=== PATIENT | male | born 1950 | race Caucasian/White ===

== ENCOUNTER 2022-04-26 12:12 | Inpatient (IN) | payer OTHER, MEDICARE, SELFPAY ==
[2022-04-26] VITALS (11 sets, daily range): BP systolic 90–148; BP diastolic 56–71; PULSE 64–78; RESP 15–18; TEMP 36.4–38.3; O2SAT 93–96; BMI 20.2; BMI 24.4
[2022-04-26 12:31] LABS: Coronavirus 19, PCR Not Detected (NotDetected); Influenza A, PCR Not Detected (NotDetected); Influenza B, PCR Not Detected (NotDetected)
[2022-04-26 12:33] LABS: Microscopic, Urine URINE MICROSCOPIC (MICROSCOPIC)
[2022-04-26 12:35] LABS: Basophils # 0.1 K/mm3 (0-0.2); Basophils % 0.4 % (0.1-2.0); Chloride 109 mmol/L (98-107); Eosinophils # 0.1 K/mm3 (0.0-0.4); Eosinophils % 0.6 % (0.1-12.0); Hematocrit 34.2 % (42.0-52.0); Hemoglobin 11.3 g/dL (14.1-18.0); Lymphocytes # 1.1 K/mm3 (0.7-4.5); Lymphocytes % 6.2 % (10-50); Mean Corpuscular HGB Conc 33.1 g/dL (31.8-35.4); Mean Corpuscular Hemoglobin 30.1 pg (27.0-31.2); Mean Platelet Volume 8.4 fl (7.4-10.4); Monocytes # 1.2 K/mm3 (0.1-1.0); Monocytes % 6.9 % (1.7-9.3); Neutrophils # 15.3 K/mm3 (1.8-7.8); Neutrophils % 85.9 % (37.0-80.0); Platelet Count 394 K/mm3 (142-424); Red Blood Count 3.76 M/mm3 (4.60-6.20); Red Cell Distribution Width 13.9 % (11.5-17.5); White Blood Count 17.8 K/mm3 (4.8-10.8)
[2022-04-26 12:36] LABS: Potassium 3.6 mmoL/L (3.5-5.1); Sodium 143 mmol/L (136-145)
[2022-04-26 12:37] LABS: MANUAL DIFFERENTIAL MANUAL DIFFERENTIAL (MANUAL DIFF)
[2022-04-26 12:37] LABS: Appearance,Urine CLEAR (Clear); Bilirubin,Urine Negative (Negative); Blood, Urine 1+ (Negative); Color,Urine YELLOW (Yellow); Glucose,Urine (UA) Negative (Negative); Ketones,Urine Negative (Negative); Leukocyte Esterase,Urine Negative (Negative); Nitrate,Urine Negative (Negative); Protein,Urine Negative (Negative); Urobilinogen,Urine 0.2 EU/dl (0.2)
[2022-04-26 12:38] LABS: Alanine Aminotransferase 16 U/L (12-78); Aspartate Amino Transferase 29 U/L (17-59); Blood Urea Nitrogen 22 mg/dl (9-20); Creatinine Clearance Estimated 30 mL/min (50-200); Estimated Glomerular Filt Rate 31 ml/min (>60); GFR (African American) 38 ML/MIN (>60)
[2022-04-26 12:39] LABS: Albumin Level 3.8 g/dl (3.5-5.0); Albumin/Globulin Ratio 1.1 (1.1-1.8); Alkaline Phosphatase 90 U/L (38-126); Anion Gap 14.6 mEq/L (5-15); Bilirubin,Total 0.5 mg/dl (0.2-1.3); Calcium 9.1 mg/dl (8.4-10.2); Carbon Dioxide 23 mmol/L (22.0-30.0); Globulin 3.6 g/dL (1.3-3.2); Glucose 119 mg/dl (74-100); Total Protein,Serum 7.4 g/dl (6.3-8.2)
--- NOTE | 2022-04-26 12:47 | ECG_ITS ---
APPROVED REPORT Exam: Resting ECG HR:74 bpm ECG Measurements Heart Rate 74 AXES ID 153 P 47 QRSd 110 QRS 53 QT 400 T 44 QTc 427 Conclusion SINUS RHYTHM NONSPECIFIC T-WAVE ABNORMALITY BORDERLINE ECG UNCONFIRMED REPORT Electronically signed by : Naseem Lewis MD 04/26/2022 22:20:27
[2022-04-26 12:53] LABS: Bacteria,Urine Trace /lpf; RBC,Urine Occasional #/hpf (0-3); Squamous Epithelial Cell,Urine Occasional #/hpf (0-5); WBC,Urine Occasional #/hpf (0-3)
[2022-04-26 12:57] LABS: Lymphocytes % 9 % (10-50); Monocytes % 15 % (2-9); Neutrophils % 76 % (42-76); Total Cells Counted 100
[2022-04-26 12:58] LABS: Platelet Estimate Slight Increase; RBC Morphology Normal
[2022-04-26 13:00] LABS: Troponin I 0.01 ng/ml (0.00-0.034)
--- NOTE | 2022-04-26 13:30 | XR_ITS ---
PROCEDURE INFORMATION: Exam: XR Chest Exam date and time: 04/26/2022 1:49 PM Age: 71 years old Clinical indication: Fever TECHNIQUE: Imaging protocol: Radiologic exam of the chest. Views: 1 view. COMPARISON: No relevant prior studies available. FINDINGS: Lungs: There is an indistinct triangular shaped opacity just lateral to the right hilum that is nonspecific and may be secondary to pneumonia but needs follow-up for clarification. Remaining lung aerated and clear. Pleural spaces: Unremarkable. No pleural effusion. No pneumothorax. Heart/Mediastinum: Unremarkable. No cardiomegaly. Bones/joints: There is deformity of the right lateral chest wall secondary to old healed fractures. IMPRESSION: Nonspecific right perihilar opacity possibly secondary to pneumonia. However recommend continued follow-up for clarification.
--- NOTE | 2022-04-26 13:37 | PC.NURSE ---
senior service technician @ BS chest x-ray
--- NOTE | 2022-04-26 13:38 | PC.NURSE ---
XR AT BEDSIDE
[2022-04-26 13:39] LABS: Adenovirus,PCR Not Detected (NotDetected); Bordetella Pertussis Not Detected (NotDetected); Chlamydophila Pneumoniae, PCR Not Detected (NotDetected); Coronavirus 19, PCR Not Detected (NotDetected); Coronavirus 229E Not Detected (NotDetected); Coronavirus NL63 Not Detected (NotDetected); Coronavirus OC43 Not Detected (NotDetected); Coronovirus HKU1,PCR Not Detected (NotDetected); Human Metapneumovirus Not Detected (NotDetected); Influenza A, PCR Not Detected (NotDetected); Influenza AH1, 2009 Not Detected (NotDetected); Influenza AH1, PCR Not Detected (NotDetected); Influenza AH3,PCR Not Detected (NotDetected); Influenza B, PCR Not Detected (NotDetected); Mycoplasma Pneumoniae, PCR Not Detected (NotDetected); Parainfluenza 1, PCR Not Detected (NotDetected); Parainfluenza 2, PCR Not Detected (NotDetected); Parainfluenza 3, PCR Not Detected (NotDetected); Parainfluenza 4, PCR Not Detected (NotDetected); Respiratory Syncytial Virus Not Detected (NotDetected); Rhinovirus/Enterovirus Not Detected (NotDetected)
--- NOTE | 2022-04-26 13:43 | HMH.EDGENADL ---
Discharge Plan Disposition Patient Disposition: Admitted As Inpatient Condition: Serious Clinical Impressions Clinical Impression: Community acquired pneumonia, Sepsis, PEDRO LUIS (acute kidney injury) Discharge ED Provider: Jonathan Olmstead General Adult HPI General Chief complaint: Weakness Stated complaint: weakness Time Seen by Provider: 04/26/22 13:43 Mode of Arrival: EMS Limitations: No Limitations Description of Symptoms (Recalled from ER Triage Doc. by RN): PT BROUGHT FROM [facility] History of Present Illness HPI narrative: The patient is brought in by ambulance from [facility]. He is a poor historian. Staff report that he was generally weak and unable to walk today. Found to be febrile on arrival to the emergency department. Patient denies any specific complaint. Denies any pain. Admits to being a smoker and having a cough, but not too much lately . Denies vomiting or diarrhea or trouble breathing. Related Data Home Medications Medication Instructions Recorded Confirmed risperidone 0.5 mg tablet 0.5 mg PO QHS DELUSIONS 09/23/18 04/26/22 amlodipine 10 mg tablet 10 mg PO DAILY High blood pressure 04/26/22 04/26/22 diazepam 5 mg tablet (Valium) 5 mg PO TID Anxiety 04/26/22 04/26/22 donepezil 5 mg tablet (Aricept) 5 mg PO HS DEMENTIA 04/26/22 04/26/22 fluoxetine 20 mg capsule (Prozac) 20 mg PO DAILY Anxiety 04/26/22 04/26/22 metoprolol succinate 50 mg 50 mg PO DAILY Heart rhythm 04/26/22 04/26/22 tablet,extended release 24 hr oxybutynin chloride 5 mg tablet 5 mg PO BID BLADDER 04/26/22 04/26/22 Previous Rx's Medication Instructions Recorded acetaminophen 325 mg tablet 325 mg PO Q4H PRN fever or pain 07/13/18 (Tylenol) #60 tabs Allergies Allergy/AdvReac Type Severity Reaction Status Date / Time No Known Allergies Allergy Verified 07/13/18 16:08 [facility] Disclaimer: The information contained in this section may have been updated after the patient was seen, as this information can be updated by other users. Social History Smoking Status: Current every day smoker ROS Obtained: Yes Systems reviewed as appropriate & no additional complaints except as documented Constitutional Constitutional: Reports fever(s), Denies headache(s) and Reports weakness ENT Ears, Nose, Mouth, and Throat: Denies headache(s), Denies nasal discharge and Denies sore throat Cardiovascular Cardiovascular: Denies chest pain Respiratory Respiratory: Denies shortness of breath and Reports cough Gastrointestinal Gastrointestingal: Denies abdominal pain, constipation, diarrhea or vomiting Genitourinary Male Genitourinary: Denies difficulty urinating and Denies flank pain Musculoskeletal Musculoskeletal: Denies numbness Neurologic Neurologic: Denies headache(s), Denies numbness and Reports weakness Physical Exam General General appearance: alert and in no apparent distress Comment: Occasional coughing. Pulse ox 97% on room air. Head Head exam: atraumatic and normocephalic Eye Eye exam: Present normal appearance and EOMI ENT ENT exam: Present mucous membranes moist Neck Neck exam: Present normal inspection and trachea midline Chest Chest inspection: Present normal inspection and symmetric chest wall rise Respiratory Respiratory exam: Present normal lung sounds bilaterally; Absent respiratory distress Cardiovascular Cardiovascular exam: Present regular rate, normal rhythm and normal heart sounds Abdominal Exam Abdominal exam: Present soft and normal bowel sounds; Absent distention, tenderness, guarding, rebound or rigidity Extremities Exam Extremities exam: Present normal inspection Neurological Exam Neurological exam: Present alert; Absent oriented X3 (Oriented to person. He knows he is in the hospital, but states the one by [facility] . Does not know the date.) Psychiatric Psychiatric exam: Present flat affect Skin Skin exam: Present warm and dry Medical Decision Making Terrence Galvan
--- NOTE | 2022-04-26 13:46 | PC.NURSE ---
ISAURO STARK at
--- NOTE | 2022-04-26 13:46 | PC.NURSE ---
ED MD AT BEDSIDE
[2022-04-26 13:48] LABS: Lactic Acid 1.3 mmol/L (0.7-2.1)
--- NOTE | 2022-04-26 14:46 | PC.NURSE ---
DR. VILLAR SPEAKING WITH DR. PETERSON
--- NOTE | 2022-04-26 14:48 | EXP.HP ---
History of Present Illness *Admission Date: 04/26/22 *Reason for visit:: weakness, cough *History of present illness: Mr. Cramer is a 71-year-old male who is a new resident at [facility]. Was brought to the ER due to report of general weakness and difficulty walking. Febrile and having cough on arrival to the ER. Difficult to get history as the patient is a poor historian. He does report being a smoker, is not on any inhalers. Denies any vomiting, chest pain, diarrhea. No headache. On work-up found to have elevated creatinine of 2.2, BUN 22, chest x-ray concerning for right perihilar consolidation. Admitted to medicine for further treatment of pneumonia and possible PEDRO LUIS. On arrival to the floor, he has no oxygen requirement. Is pleasant but unable to give much history. Does state that he has had symptoms for over a week and thought he might have COVID. They got worse over the past 2 days. Does not know if he has a history of chronic kidney disease. Eating dinner on interview. Was in unkempt condition when he arrived to the floor, frankly soiled and needed a bath. [facility] Disclaimer: The information contained in this section may have been updated after the patient was seen, as this information can be updated by other users. Patient is a poor historian, difficult to obtain history. Medical History (Updated 04/26/22 @ 18:31 by Donnie Caban MD) Alcoholism COPD (chronic obstructive pulmonary disease) Social History Smoking Status: Current every day smoker alcohol intake: former current occupational status: disabled Travel in the last 8 weeks: None Review of Systems Review of Systems Review of systems (narrative): 14 point review of systems performed, pertinent positives and negatives as per HPI Constitutional Constitutional: Denies headache(s) and Reports weakness ENT Ears, Nose, Mouth, and Throat: Denies headache(s) *Musculoskeletal Musculoskeletal: Denies numbness *Neurologic Neurologic: Denies headache(s), Denies numbness and Reports weakness Meds Home Medications and Allergies Home Medications Medication Instructions Recorded Confirmed Type acetaminophen 325 mg tablet 325 mg PO Q4H PRN fever or pain 07/13/18 04/26/22 Rx (Tylenol) #60 tabs risperidone 0.5 mg tablet 0.5 mg PO QHS DELUSIONS 09/23/18 04/26/22 History amlodipine 10 mg tablet 10 mg PO DAILY High blood pressure 04/26/22 04/26/22 History diazepam 5 mg tablet (Valium) 5 mg PO TID Anxiety 04/26/22 04/26/22 History donepezil 5 mg tablet (Aricept) 5 mg PO HS DEMENTIA 04/26/22 04/26/22 History fluoxetine 20 mg capsule (Prozac) 20 mg PO DAILY Anxiety 04/26/22 04/26/22 History metoprolol succinate 50 mg 50 mg PO DAILY Heart rhythm 04/26/22 04/26/22 History tablet,extended release 24 hr oxybutynin chloride 5 mg tablet 5 mg PO BID BLADDER 04/26/22 04/26/22 History New Prescriptions to Start Prescriptions: Allergies Allergy/AdvReac Type Severity Reaction Status Date / Time No Known Allergies Allergy Verified 07/13/18 16:08 Exam Data for Last 24 hours Vital signs and Labs for Last 24 Hours: Temp Pulse Resp BP Pulse Ox 101.0 F H 72 16 124/66 93 L 04/26/22 12:12 04/26/22 14:31 04/26/22 14:31 04/26/22 14:31 04/26/22 14:31 Laboratory Results - last 24 hr 04/26/22 12:20: WBC 17.8 H, RBC 3.76 L, Hgb 11.3 L, Hct 34.2 L, MCV 91.0, MCH 30.1, MCHC 33.1, RDW 13.9, Plt Count 394, MPV 8.4, Neut % (Auto) 85.9 H, Lymph % (Auto) 6.2 L, [place] % (Auto) 6.9, Eos % (Auto) 0.6, Baso % (Auto) 0.4, Neut # (Auto) 15.3 H, Lymph # (Auto) 1.1, [place] # (Auto) 1.2 H, Eos # (Auto) 0.1, Baso # (Auto) 0.1, Total Counted 100, Neutrophils % (Manual) 76, Lymphocytes % (Manual) 9 L, Monocytes % (Manual) 15 H, Platelet Estimate Slight increase, RBC Morphology Normal 04/26/22 12:20: Sodium 143, Potassium 3.6, Chloride 109 H, Carbon Dioxide 23, Anion Gap 14.6, BUN 22 H, Creatinine 2.1
--- NOTE | 2022-04-26 14:53 | PC.NURSE ---
Spoke with HOUSE regarding patient admission
--- NOTE | 2022-04-26 15:49 | PC.NURSE ---
REPORT GIVEN TO Latanya CROW RN
[2022-04-26 16:01] LABS: Troponin I 0.02 ng/ml (0.00-0.034)
--- NOTE | 2022-04-26 16:30 | PC.NURSE ---
patient arrived by stretcher from ED
[2022-04-26 18:50] LABS: Troponin I 0.02 ng/ml (0.00-0.034)
[2022-04-27] VITALS (9 sets, daily range): BP systolic 121–149; BP diastolic 67–78; PULSE 56–90; RESP 16–20; TEMP 36.5–36.9; O2SAT 90–96; BMI 24.6
--- NOTE | 2022-04-27 05:15 | PC.NURSE ---
PATIENT HAS BEEN COOPERATIVE THIS SHIFT. SOMEWHAT RECLUSIVE. WAS RESISTIVE TO CARE UPON ADMISSION ON DAYSHIFT BUT COOPERATIVE WITH US. GROINS EXCORIATED. NO RESPIRATORY DISTRESS OR C/O SOA.
[2022-04-27 06:48] LABS: Basophils # 0.1 K/mm3 (0-0.2); Basophils % 0.4 % (0.1-2.0); Eosinophils # 0.4 K/mm3 (0.0-0.4); Eosinophils % 2.6 % (0.1-12.0); Hematocrit 31.7 % (42.0-52.0); Hemoglobin 10.4 g/dL (14.1-18.0); Lymphocytes # 1.7 K/mm3 (0.7-4.5); Lymphocytes % 11.9 % (10-50); Mean Corpuscular HGB Conc 32.8 g/dL (31.8-35.4); Mean Corpuscular Hemoglobin 29.6 pg (27.0-31.2); Mean Corpuscular Volume 90.5 fl (80-94); Mean Platelet Volume 8.6 fl (7.4-10.4); Monocytes # 0.9 K/mm3 (0.1-1.0); Monocytes % 6.7 % (1.7-9.3); Neutrophils # 10.9 K/mm3 (1.8-7.8); Neutrophils % 78.4 % (37.0-80.0); Platelet Count 380 K/mm3 (142-424); Red Cell Distribution Width 14.1 % (11.5-17.5); White Blood Count 13.9 K/mm3 (4.8-10.8)
[2022-04-27 06:55] LABS: Alanine Aminotransferase 12 U/L (12-78); Albumin/Globulin Ratio 0.9 (1.1-1.8); Alkaline Phosphatase 71 U/L (38-126); Aspartate Amino Transferase 34 U/L (17-59); Bilirubin,Total 0.2 mg/dl (0.2-1.3); Blood Urea Nitrogen 22 mg/dl (9-20); Calcium 8.2 mg/dl (8.4-10.2); Carbon Dioxide 21 mmol/L (22.0-30.0); Chloride 115 mmol/L (98-107); Creatinine Clearance Estimated 47 mL/min (50-200); Estimated Glomerular Filt Rate 40 ml/min (>60); GFR (African American) 48 ML/MIN (>60); Globulin 3.2 g/dL (1.3-3.2); Glucose 85 mg/dl (74-100); Magnesium 1.6 mg/dl (1.6-2.3); Sodium 144 mmol/L (136-145); Total Protein,Serum 6.2 g/dl (6.3-8.2)
--- NOTE | 2022-04-27 06:58 | PC.NURSE ---
critical lab value potassium 3.0 reported to hospitalist aqt this time
--- NOTE | 2022-04-27 07:36 | P.CONPHA_ITS ---
Pharmacy Intervention Comments: MEDICATION RECONCILIATION COMPLETED ON PATIENT USING MAR FROM [facility]. -EMILY MUNOZ, DEVAUGHND
--- NOTE | 2022-04-27 07:36 | HMH.PHAINT1 ---
Pharmacy Intervention Comments: MEDICATION RECONCILIATION COMPLETED ON PATIENT USING MAR FROM SNF. -EMILY MUNOZ, DEVAUGHND
--- NOTE | 2022-04-27 10:05 | HMH.OTEV ---
OT Inpatient Evaluation Rehab OT IP Evaluation Start: 04/26/22 18:57 Freq: ONCE Status: Active Protocol: Document 04/27/22 09:56 CATHRYN (Rec: 04/27/22 10:05 [email or web address] [id number]) Rehab OT IP Assessment Subjective History Pt oriented x 2 on arrival. Pt agreeable to engage in therapy evaluation. Pt was admitted on 04/26/22 due to weakness, cough, and decline in functional status. Prior to being in the hosptial, pt lived at [place] [facility]. Pt reports he did not walk prior to being in the hospital and was in a wheelchair at all times. However, after chart review it appears he was walking. Information provided by patient may not be trustworthy due to pt being poor historian. Pt claims he could dress independently at times, but also needs assistance at times as well. He also explains he was independent with showering and feeding. Pt was dependent upon staff for completion of all IADLS. Pt has a past medical history of: Alcoholism COPD (chronic obstructive pulmonary disease) Subjective I need to be on disability. Objective Patient Orientation Person,Birthday Upper Extremity Gross ROM Min Limitation <25% Shoulder ROM Limitations Muscle Weakness Elbow ROM Limitations Muscle Weakness Wrist Limitations of Range of Motion Muscle Weakness Bed Mobility bed mobility-scooting,bed mobility - supine/sit,bed mobility - rolling Assist Level Moderate x 1 (50% assist) Transfer Training Sit/Stand/Step Transfer Assist Level Minimal x 1 (25% assist) Rehab OT IP prob,goals,plan Problems Date of Evaluation: 04/27/22 OT IP Problems Bed Mobility,Transfers,Balance ,Self care,Safety Rehab Potential Rehab Potential Good Equipment Needs Assistive Devices Rolling / Wheeled Walker Plan
--- NOTE | 2022-04-27 11:08 | SW/DCPLANNER ---
Addendum entered by Lovely Harmon 04/28/22 09:14: Nehal shabazz/ [facility] has stated that she can accept this patient. Patient will need a COVID swab prior to discharge. I will update patient and his family. Patient could potentially discharge later today. Addendum entered by Lovely Harmon 04/27/22 15:29: [facility] is currently reviewing patient information at this time. Addendum entered by Lovely Harmon 04/27/22 12:30: Sera shabazz/ [facility] stated that she is unable to accept this patient. Patient information has also been faxed to the following facilities: [facility], [facility], [facility] and [facility]. Original Note: I called and spoke with this patient's brother regarding plans once medically stable for discharge. Patient's brother is agreeable to any skilled facility for this patient. Patient information will be faxed to [facility] and [facility] for SNF level of care. I will follow up with facilities once patient information is reviewed. Patient is medically stable for discharge once placement is established.
--- NOTE | 2022-04-27 11:22 | HMH.PTEV ---
Physical Therapy Evaluation Rehab PT IP Evaluation Start: 04/26/22 18:57 Freq: ONCE Status: Active Protocol: Document 04/27/22 09:45 PHORNE (Rec: 04/27/22 11:22 PHORNE [id number]) Subjective/History History History 71 yowm adm to [facility] with PNA and sepsis. He presents from a personal custodial and is generally independent with transfers, but reports he uses a manual w/c for primary mobility. Subjective Subjective He reports back discomfort this am. Rehab PT IP Eval Objective Appearance Patient Behavior Appropriate Patient Orientation Person,Place,Time Difficulty following instructions none Speech Pattern Clear Ambulation Patient Able to Ambulate Yes Ambulation Observation IP General Gait Pattern Observation Shuffling Step Ambulation Distance (feet) 5 Ambulation Assistive Device None Ambulation Ability Minimal x 1 (25% assist) Balance Ability to Arise Able, uses arms to help Sitting Balance Steady, safe Standing Balance Steady, wide stance Dynamic Sitting Balance Ability Good Dynamic Standing Balance Ability Fair Transfers Bed Transfer Ability Minimal x 1 (25% assist) Chair Transfer Ability Minimal x 1 (25% assist) Sit to Stand Bed Transfer Ability Minimal x 1 (25% assist) Sit to Stand Chair Transfer Ability Minimal x 1 (25% assist) Rehab PT IP prob,goals,plan Problems Date of Evaluation: 04/27/22 PT IP Problems Bed Mobility,Transfers,Gait Rehab Potential Rehab Potential Good Plan PT Intervention Plan Bed Mobility,Transfers,Gait, Therapeutic Exercise PT Plan Frequency BID Duration LOS Discharge Goals Bed Transfer Ability Contact Guard/Hand Hold Sit to Stand Chair Transfer Ability Contact Guard/Hand Hold Ambulation Assistive Device Rolling Walker Ambulation Distance (feet) 20 Discharge Plan PT Discharge Plan Pt is currently most appropriate for rehab placement once medically stable. If he does use a w/c for all mobility and/or ambulation improves he may be able to return to personal custodial at that time. G -code Required No Eval Complexity Eval Charge Codes 26411 - Moderate Complexity
--- NOTE | 2022-04-27 14:56 | EXP.ACUTE.PN ---
Subjective *Date: 04/27/22 *Time: 14:56 Interval history: No acute events overnight. Stable on room air. Tolerating p.o. intake. Patient remains quite weak. Requires assistance to get to the bathroom. Denies nausea, vomiting, chest pain, shortness of breath. Still having cough. Medical Exam Vital signs and Labs for Last 24 Hours: Vital Signs Temp Pulse Pulse Resp BP BP Pulse Ox 04/27/22 12:00 98.3 F 77 16 128/75 95 04/27/22 11:15 72 04/27/22 11:15 74 04/27/22 08:00 98.4 F 85 18 149/78 H 90 L 04/27/22 06:11 70 04/27/22 06:11 71 04/27/22 03:52 97.7 F 61 18 136/69 95 04/27/22 00:00 97.7 F 56 L 16 133/67 94 L 04/26/22 23:44 78 04/26/22 23:44 78 04/26/22 20:00 95 04/26/22 20:00 97.6 F 64 18 126/62 95 04/26/22 17:16 98.2 F 68 18 148/70 H 95 04/26/22 16:27 99.9 F H 74 17 106/70 L 04/26/22 16:01 74 16 106/70 L 94 L 04/26/22 15:00 70 15 134/71 94 L Intake and Output 04/26/22 04/27/22 04/27/22 23:59 07:59 15:59 Intake Total 240 / 240 802 / 1162 360 / 1162 Output Total 0 / 0 Balance 240 / 240 802 / 1162 360 / 1162 Intake: Intake, Oral Amount 240 / 240 360 / 360 Intake, Total IV Amount 802 / 802 Ringers Solution,Lactated 1,000 802 / 802 ml @ 100 mls/hr IV .Q10H [facility] Rx#:[id number] Output: Output, Urine Amount 0 / 0 Other: Number of Unmeasured Voids 1 Number of Bowel Movements 1 Weight 81.817 kg 82.611 kg 82.6 kg Patient Weight 04/27/22 23:59 Weight 82.6 kg Laboratory Results - last 24 hr 04/26/22 12:20: Chlamy pneumoniae PCR Not detected, Adenovirus (PCR) Not detected, B. pertussis DNA (PCR) Not detected, Coronavirus OC43 (PCR) Not detected, Coronavirus HKU1 (PCR) Not detected, Coronavirus 229E (PCR) Not detected, SARS-CoV-2 (PCR) Not detected, Coronavirus NL63 (PCR) Not detected, Human Metapneumovir PCR Not detected, Influenza A (H1) PCR Not detected, Influ A (H1N1/09) PCR Not detected, Influenza A (H3) PCR Not detected, Influenza Type A (PCR) Not detected, Influenza Type B (PCR) Not detected, M. pneumoniae (PCR) Not detected, Parainfluenza 1 (PCR) Not detected, Parainfluenza 2 (PCR) Not detected, Parainfluenza 3 (PCR) Not detected, Parainfluenza 4 (PCR) Not detected, RSV (PCR) Not detected, Entero/Rhino (PCR) Not detected 04/26/22 15:35: Troponin I 0.02 04/26/22 17:40: Troponin I 0.02 04/27/22 06:13: WBC 13.9 H, RBC 3.50 L, Hgb 10.4 L, Hct 31.7 L, MCV 90.5, MCH 29.6, MCHC 32.8, RDW 14.1, Plt Count 380, MPV 8.6, Neut % (Auto) 78.4, Lymph % (Auto) 11.9, [place] % (Auto) 6.7, Eos % (Auto) 2.6, Baso % (Auto) 0.4, Neut # (Auto) 10.9 H, Lymph # (Auto) 1.7, [place] # (Auto) 0.9, Eos # (Auto) 0.4, Baso # (Auto) 0.1 04/27/22 06:13: Sodium 144, Potassium 3.0 L, Chloride 115 H, Carbon Dioxide 21 L, Anion Gap 11.0, BUN 22 H, Creatinine 1.70 H, Estimated Creat Clear 47, Estimated GFR 40 L, Est GFR ( Amer) 48 L D, Glucose 85 D, Calcium 8.2 L, Magnesium 1.6, Total Bilirubin 0.2, AST 34, ALT 12, Alkaline Phosphatase 71, Total Protein 6.2 L, Albumin 3.0 L D, Globulin 3.2, Albumin/Globulin Ratio 0.9 L I & O for Labs for Last 24 Hours: Intake & Output 04/24/22 04/25/22 04/26/22 04/27/22 23:59 23:59 23:59 23:59 Intake Total 240 / 240 1162 / 1162 Output Total 0 / 0 Balance 240 / 240 1162 / 1162 Weight 81.817 kg 82.6 kg Constitutional: Present no acute distress and chronically ill appearing Head: Present atraumatic and normocephalic ENT: Present normal exam Neck: Present normal inspection Respiratory: Present wheezes and normal respiratory effort; Absent accessory muscle use, rhonchi or crackles Cardiac: Present Reg Rate and Rhythm GI: Present soft and normal bowel sounds; Absent distention or tenderness Extremities: Present normal inspection and full ROM Skin: Present intact; Absent erythema Neuro: Present Grossly Intact, alert, awake and moves all ex
--- NOTE | 2022-04-27 16:47 | PC.NURSE ---
PT IS RESTING IN BED. PT HAS HAD PERIODS OF CONFUSION. PT IS STILL NOT UNDERSTANDING WHY HE IS IN THE HOSPITAL AND WAS UNDER THE IMPRESSION THAT HE COULD BE HERE UNTIL HE WAS NO LONGER ABLE TO PAY HIS RENT. PT WAS REDIRECTED AND UPDATED ON THE PLAN OF CARE. PT STATES HE DOES NOT WANT TO GO BACK TO [facility] HOWEVER HE DOES NOT WANT TO BE AT A PLACE THAT IS CLOSE TO HIS FAMILY EITHER. PT HAS BROUGHT UP SEVERAL TIMES ABOUT GOING TO AA MEETINGS AND STATED HE HAS NOT HAD A DRINK IN 14 YEARS HOWEVER PT THINKS HIS DRINKING IS THE REASON HE IS NOT ABLE TO STAY ANY PLACE. BED SAFETY SET. PT HAS MADE MULTIPLE ATTEMPTS TO GET OOB W/O ASSISTANCE. LUNG SOUNDS DIMINISHED WITH SCATTERED WHEEZES. ABDOMEN SOFT/NON TENDER WITH ACTIVE BOWEL SOUNDS. IV TO THE LAC WAS PULLED OUT WHEN PT ATTEMPTED TO AMBULATE TO THE BATHROOM W/O ASSISTANCE. NEW IV ACCESS NOTED TO RFA. WILL CONTINUE TO MONITOR.
--- NOTE | 2022-04-27 22:32 | PC.NURSE ---
Pt. pulled out his 20g in the right fa. Iv replaced with a 22g in the right fa.
[2022-04-28] VITALS (9 sets, daily range): BP systolic 110–149; BP diastolic 60–75; PULSE 67–85; RESP 16–20; TEMP 36.6–36.9; O2SAT 90–97; BMI 24.7
[2022-04-28 07:04] LABS: Basophils # 0.1 K/mm3 (0-0.2); Basophils % 0.7 % (0.1-2.0); Eosinophils # 0.4 K/mm3 (0.0-0.4); Eosinophils % 3.8 % (0.1-12.0); Hematocrit 31.2 % (42.0-52.0); Hemoglobin 10.3 g/dL (14.1-18.0); Lymphocytes % 17.9 % (10-50); Mean Corpuscular HGB Conc 32.9 g/dL (31.8-35.4); Mean Corpuscular Hemoglobin 29.7 pg (27.0-31.2); Mean Corpuscular Volume 90.5 fl (80-94); Mean Platelet Volume 9.3 fl (7.4-10.4); Monocytes # 0.9 K/mm3 (0.1-1.0); Neutrophils # 7.9 K/mm3 (1.8-7.8); Neutrophils % 69.7 % (37.0-80.0); Platelet Count 385 K/mm3 (142-424); Red Blood Count 3.45 M/mm3 (4.60-6.20); Red Cell Distribution Width 14.3 % (11.5-17.5); White Blood Count 11.3 K/mm3 (4.8-10.8)
[2022-04-28 07:20] LABS: Anion Gap 9.1 mEq/L (5-15); Blood Urea Nitrogen 15 mg/dl (9-20); Calcium 8.2 mg/dl (8.4-10.2); Carbon Dioxide 22 mmol/L (22.0-30.0); Chloride 114 mmol/L (98-107); Creatinine Clearance Estimated 50 mL/min (50-200); Estimated Glomerular Filt Rate 43 ml/min (>60); GFR (African American) 52 ML/MIN (>60); Glucose 90 mg/dl (74-100); Potassium 3.1 mmoL/L (3.5-5.1); Sodium 142 mmol/L (136-145)
--- NOTE | 2022-04-28 07:39 | PC.NURSE ---
Pt. had no other changes through out the night.
[2022-04-28 11:27] LABS: Coronavirus 19, PCR Not Detected (NotDetected); Influenza A, PCR Not Detected (NotDetected); Influenza B, PCR Not Detected (NotDetected)
--- NOTE | 2022-04-28 13:27 | EXP.DC.SUM ---
General Admission date:: 04/26/22 Discharge date: 04/28/22 HPI HPI HPI: Mr. Cramer is a 71-year-old male who is a new resident at [facility]. Was brought to the ER due to report of general weakness and difficulty walking. Febrile and having cough on arrival to the ER. Difficult to get history as the patient is a poor historian. He does report being a smoker, is not on any inhalers. Denies any vomiting, chest pain, diarrhea. No headache. On work-up found to have elevated creatinine of 2.2, BUN 22, chest x-ray concerning for right perihilar consolidation. Admitted to medicine for further treatment of pneumonia and possible PEDRO LUIS. On arrival to the floor, he has no oxygen requirement. Is pleasant but unable to give much history. Does state that he has had symptoms for over a week and thought he might have COVID. They got worse over the past 2 days. Does not know if he has a history of chronic kidney disease. Eating dinner on interview. Was in unkempt condition when he arrived to the floor, frankly soiled and needed a bath. Hospital Course Hospital Course Hospital Course: Patient was admitted for sepsis present on admission secondary to community-acquired pneumonia. Started on ceftriaxone azithromycin, received bolus of IV fluids in the ER, [place]. Sputum sample ordered and pending, blood cultures no growth to date. Symptomatically improved. PT OT evaluated for weakness and recommended placement. PEDRO LUIS versus CKD creatinine improved with gentle rehydration. Home medications continued. Patient transition from IV Rocephin to azithromycin. Discharge to [facility] Exam Data for Last 24 hours Vital signs and Labs for Last 24 Hours: Temp Pulse Resp BP Pulse Ox 97.9 F 67 18 100/56 L 97 04/28/22 11:16 04/28/22 11:25 04/28/22 11:16 04/28/22 11:16 04/28/22 11:25 Laboratory Results - last 24 hr 04/28/22 06:38: WBC 11.3 H, RBC 3.45 L, Hgb 10.3 L, Hct 31.2 L, MCV 90.5, MCH 29.7, MCHC 32.9, RDW 14.3, Plt Count 385, MPV 9.3, Neut % (Auto) 69.7, Lymph % (Auto) 17.9, [place] % (Auto) 8.0, Eos % (Auto) 3.8, Baso % (Auto) 0.7, Neut # (Auto) 7.9 H, Lymph # (Auto) 2.0, [place] # (Auto) 0.9, Eos # (Auto) 0.4, Baso # (Auto) 0.1 04/28/22 06:38: Sodium 142, Potassium 3.1 L, Chloride 114 H, Carbon Dioxide 22, Anion Gap 9.1, BUN 15 D, Creatinine 1.60 H, Estimated Creat Clear 50, Estimated GFR 43 L, Est GFR ( Amer) 52 L, Glucose 90, Calcium 8.2 L 04/28/22 11:18: SARS-CoV-2 (PCR) Not detected, Influenza A Untype (PCR) Not detected, Influenza Type B (PCR) Not detected I & O for Last 24 hours: Intake & Output 04/25/22 04/26/22 04/27/22 04/28/22 23:59 23:59 23:59 23:59 Intake Total 240 / 240 2169 / 2409 1520 / 1520 Output Total 300 / 300 350 / 350 Balance 240 / 240 1869 / 2109 1170 / 1170 Weight 81.817 kg 82.6 kg 83.1 kg Constitutional Constitutional: no acute distress and cooperative *Routine HEENT Exam Head: Present normocephalic ENT: Present mucous membranes moist *Routine Neck Exam Neck: Present supple and full ROM *Routine Respiratory Exam Respiratory: Present CTA bilaterally; Absent accessory muscle use *Routine Cardiovascular Exam Cardiovascular: Present RRR; Absent murmur *Routine Abdominal Exam Abdominal: Present soft; Absent tenderness *Routine Extremities Exam Extremities: Absent cyanosis or clubbing *Routine Skin Exam Skin: Present intact; Absent cyanosis *Routine Neurological Exam Neurological: Present alert, oriented X3 and CN II-XII intact Results Data Completed and Pending Labs on day of discharge: Labs from last 24 hours 04/28/22 04/28/22 04/28/22 11:18 06:38 06:38 WBC 11.3 H RBC 3.45 L Hgb 10.3 L Hct 31.2 L MCV 90.5 MCH 29.7 MCHC 32.9 RDW 14.3 Plt Count 385 MPV 9.3 Neut % (Auto) 69.7 Lymph % (Auto) 17.9 [place] % (Auto) 8.0 Eos % (Auto) 3.8 Baso % (Auto) 0.7 Neut # (Auto) 7.9 H Lymph # (Auto) 2
--- NOTE | 2022-04-28 15:29 | PC.NURSE ---
REPORT GIVEN TO [facility], EMS CALLED. WAITING FOR TRANSPORT.
== END 2022-04-28 16:00 | DRG 194 ==
LOC: ER 15:39 → 2ND 15:47
PROVIDERS: Admitting Provider Internal Medicine Adolescent Medicine; Emergency Provider Emergency Medicine; PCP Emergency Medicine; Visit Provider Student in an Organized Health Care Education/Training Program
DX: J18.9 Pneumonia, unspecified organism (principal); N17.9 Acute kidney failure, unspecified; F03.90 Unspecified dementia, unspecified severity, without behavioral disturbance, psychotic disturbance, mood disturbance, and anxiety; Z91.81 History of falling; F32.9 Major depressive disorder, single episode, unspecified; F17.200 Nicotine dependence, unspecified, uncomplicated; I10 Essential (primary) hypertension
CPT/HCPCS: 36415; 71045; 80048; 80053; 81001; 83605; 83735; 84484; 85007; 85025; 87040; 87581; 87632; 87798; 93005; 94640; 97162; 97166; 97530; 99285; C9803; J0456; J0696; U0003; U0005